=== PATIENT | male | born 1945 | race Caucasian/White ===

== ENCOUNTER → 2016-09-11 | Outpatient (CLI) | payer BC ==
[~2016-09-11] MED LIST: AMLO-114 PO; ASPI81TA28 PO; ATOR10TA88 PO; LEVO50TA6 PO; MEMA10TA PO; MULT-506 PO
[2016-09-11 12:24] LABS: BASO % 0.4 %; BASO ABS # 0.02 K/uL (0-0.2); COMPLETE YES; HEMATOCRIT 45.2 % (42-52); IG% 0.4 %; LYMPH % 32.9 %; LYMPH ABS # 1.62 K/uL (1.2-3.4); MEAN CELL VOLUME 96.2 fL (80-100); MEAN CORPUSCULAR HEMOGLOBIN 33.8 pg (25-34); MEAN CORPUSCULAR HGB CONC 35.2 g/dl (32-36); MEAN PLATELET VOLUME 10.5 fL (7.4-10.4); MONO % 9.1 %; NEUT % 55.2 %; PLATELET COUNT 151 K/uL (130-400); WHITE BLOOD COUNT 4.92 K/uL (4.8-10.8)
[2016-09-11 12:27] LABS: URINE APPEARANCE CLEAR (CLEAR); URINE BILIRUBIN NEG (NEG); URINE COLOR YELLOW; URINE EPITHELIAL CELL AUTO 0-5 /lpf (0-5); URINE NITRITE NEG (NEG); URINE SPECIFIC GRAVITY 1.006 (1.000-1.030); UROBILINOGEN NEG (NEG); ZZUR CULT IF INDIC CLEAN CATCH NO
[2016-09-11 12:29] LABS: MANUAL MICROSCOPIC REQUIRED? NO; REVIEW REQ? NO
[2016-09-11 12:35] LABS: ALT/SGPT 26 U/L (12-78); AST/SGOT 14 U/L (15-37); BLOOD UREA NITROGEN 14 mg/dl (7-18); BUN/CREATININE RATIO 12.6 (10-20); CALCIUM 9.2 mg/dl (8.5-10.1); CARBON DIOXIDE 25 mmol/L (21-32); CHLORIDE 104 mmol/L (98-107); GLUCOSE 79 mg/dl (70-99); POTASSIUM 3.9 mmol/L (3.5-5.1); SODIUM 140 mmol/L (136-145)
[2016-09-11 12:43] LABS: ALB/GLOB RATIO 1.5 (0.9-2); ALKALINE PHOSPHATASE 54 U/L (45-117)
== END | disposition home or self-care (01) ==
LOC: C.LABBFT 07:53
PROVIDERS: ATTEND Internal Medicine
DX: I10 Essential (primary) hypertension (principal); E03.9 Hypothyroidism, unspecified

== ENCOUNTER → 2017-03-25 | Outpatient (CLI) | payer BC ==
[2017-03-25 12:34] LABS: CHOLESTEROL/HDL RATIO 2.8; PROSTATE SPECIFIC ANTIGEN 1.85 ng/ml (0.000-4.000); THYROID STIMULATING HORMONE 2.41 uIu/ml (0.300-4.500)
== END | disposition home or self-care (01) ==
LOC: C.LABBFT 09:32
PROVIDERS: ATTEND Internal Medicine
DX: E03.9 Hypothyroidism, unspecified (principal); E78.5 Hyperlipidemia, unspecified; Z12.5 Encounter for screening for malignant neoplasm of prostate; Z11.59 Encounter for screening for other viral diseases

== ENCOUNTER → 2017-07-17 | Outpatient (CLI) | payer BC ==
[~2017-07-17] MED LIST changes: +ATOR10TA82 PO; -ATOR10TA88 PO
== END | disposition home or self-care (01) ==
LOC: C.CPL 10:27
PROVIDERS: ATTEND Orthopaedic Surgery
DX: M19.132 Post-traumatic osteoarthritis, left wrist (principal)

== ENCOUNTER → 2017-10-02 | Outpatient (CLI) | payer BC ==
[2017-10-02 12:54] LABS: BASO % 0.5 %; BASO ABS # 0.02 K/uL (0-0.2); EOS % 6.4 %; EOS ABS # 0.26 K/uL (0-0.5); HEMATOCRIT 43.4 % (42-52); HEMOGLOBIN 15.2 g/dL (14.0-18.0); LYMPH % 42.8 %; LYMPH ABS # 1.73 K/uL (1.2-3.4); MEAN CELL VOLUME 93.7 fL (80-100); MEAN CORPUSCULAR HEMOGLOBIN 32.8 pg (25-34); MEAN PLATELET VOLUME 10.2 fL (7.4-10.4); MONO % 9.2 %; MONO ABS # 0.37 K/uL (0.11-0.59); NEUT % 41.1 %; NEUT ABS # 1.66 K/uL (1.4-6.5); PLATELET COUNT 140 K/uL (130-400); RED CELL DISTRIBUTION WIDTH CV 14.3 % (11.5-14.5); RED CELL DISTRIBUTION WIDTH SD 48.6 fL (36.4-46.3); WHITE BLOOD COUNT 4.04 K/uL (4.8-10.8)
[2017-10-02 13:42] LABS: ALBUMIN 4.3 gm/dl (3.4-5.0); ALT/SGPT 25 U/L (12-78); AST/SGOT 16 U/L (15-37); BLOOD UREA NITROGEN 16 mg/dl (7-18); CALCIUM 8.9 mg/dl (8.5-10.1); CARBON DIOXIDE 25 mmol/L (21-32); CREATININE 0.97 mg/dl (0.60-1.40); GLUCOSE 89 mg/dl (70-99); POTASSIUM 3.9 mmol/L (3.5-5.1); SODIUM 137 mmol/L (136-145)
[2017-10-02 13:52] LABS: ALKALINE PHOSPHATASE 55 U/L (45-117); TOTAL PROTEIN 7.4 gm/dl (6.4-8.2)
== END | disposition home or self-care (01) ==
LOC: C.LABBFT 07:58
PROVIDERS: ATTEND Internal Medicine
DX: I10 Essential (primary) hypertension (principal); E03.9 Hypothyroidism, unspecified

== ENCOUNTER 2024-12-01 08:31 | Observation (INO) ==
--- NOTE | 2024-11-06 16:11 | PAT Medication Instructions ---
Medication Instructions Date of Service November 06, 2024 Home Medications Medication Instructions Recorded CPAP Machine #1 ea 04/13/21 levothyroxine 50 mcg tablet 50 mcg PO QAM #90 tabs 06/30/24 memantine 10 mg tablet 10 mg PO BID #180 tabs 09/02/24 aspirin 81 mg tablet,delayed release 81 mg PO HS multivitamin 1 tab PO QAM ascorbic acid (vitamin C) 1,000 mg tablet (Vitamin C) 1 g PO QPM cholecalciferol (vitamin D3) 125 mcg (5,000 unit) tablet (Vitamin D3) 250 mcg PO QPM levothyroxine 50 mcg tablet 50 mcg PO QAM memantine 10 mg tablet 10 mg PO BID amlodipine 10 mg tablet (Norvasc) 10 mg PO HS escitalopram oxalate 10 mg tablet (Lexapro) 5 mg PO HS rosuvastatin 5 mg tablet (Crestor) 5 mg PO QPM ASK your prescriber and surgeon aspirin 81 mg tablet,delayed release 81 mg PO HS DO NOT take the morning of surgery multivitamin 1 tab PO QAM Take morning of surgery With a small sip of water, OTHERWISE NOTHING TO EAT OR DRINK AFTER MIDNIGHT: levothyroxine 50 mcg tablet 50 mcg PO QAM memantine 10 mg tablet 10 mg PO BID Take evening before surgery ascorbic acid (vitamin C) 1,000 mg tablet (Vitamin C) 1 g PO QPM cholecalciferol (vitamin D3) 125 mcg (5,000 unit) tablet (Vitamin D3) 250 mcg PO QPM memantine 10 mg tablet 10 mg PO BID amlodipine 10 mg tablet (Norvasc) 10 mg PO HS escitalopram oxalate 10 mg tablet (Lexapro) 5 mg PO HS rosuvastatin 5 mg tablet (Crestor) 5 mg PO QPM Other Notes If you have any questions please call us at [phone] or [phone] or [phone] or [phone]
--- NOTE | 2024-11-13 13:09 | Anesthesiology Consultation ---
Date of Service November 13, 2024 Assessment & Plan (1) Encounter for pre-operative examination: - Outpatient joint assessment: Patient is currently scheduled for inpatient pathway. If re-evaluated and patient/surgeon requests outpatient pathway, patient is not a candidate for outpatient joint program. Chart Review Chart Review: Acceptable Risk for Surgery and Patient seen in Pre Admission Testing Teaching & Discussion Pre-Anesthesia Teaching/Discussion Notes: Instructed NPO after midnight before surgery, except medications with 15 cc of water. Medication instructions provided according to the PAT guidelines. History Surgery Operation Date: 12/01/24 12:30 Proposed Procedures p Right Total Knee Arthroplasty - Dylan Shea MD Height/Weight Height: 5 ft 9 in Weight: 95.8 kg Allergies Allergy/AdvReac Type Severity Reaction Status Date / Time Sulfa (Sulfonamide Allergy Intermediate Lower Verified 11/06/24 10:13 Antibiotics) Extremity Swelling Medications Home Medications Medication Instructions Recorded Confirmed Last Taken aspirin 81 mg tablet,delayed 81 mg PO HS 05/22/19 11/06/24 09/17/23 release multivitamin 1 tab PO QAM 05/22/19 11/06/24 09/17/23 CPAP Machine #1 ea 04/13/21 11/05/24 10/16/22 ascorbic acid (vitamin C) 1,000 mg 1 g PO QPM 09/18/23 11/06/24 09/17/23 tablet (Vitamin C) cholecalciferol (vitamin D3) 125 250 mcg PO QPM 09/18/23 11/06/24 09/17/23 mcg (5,000 unit) tablet (Vitamin D3) levothyroxine 50 mcg tablet 50 mcg PO QAM #90 tabs 06/30/24 11/06/24 Unknown memantine 10 mg tablet 10 mg PO BID #180 tabs 09/02/24 11/06/24 Unknown amlodipine 10 mg tablet (Norvasc) 10 mg PO HS 11/06/24 11/06/24 Unknown escitalopram oxalate 10 mg tablet 5 mg PO HS 11/06/24 11/06/24 Unknown (Lexapro) rosuvastatin 5 mg tablet (Crestor) 5 mg PO QPM 11/06/24 11/06/24 Unknown Past Medical History Medical History (Updated 11/13/24 @ 13:19 by Clara Ho PA-C) Arthritis of knee, right Chronic allergic rhinitis Environmental allergies Hard of hearing no hearing aids History of skin cancer s/p excision History of stomach ulcers no current problems as per patient Hx of Lyme disease many yrs ago; completed antibiotic tx Hyperlipidemia Hypertension controlled, stable per pt Hypothyroidism Peyronie's disease Sleep apnea CPAP-compliant Transient ischemic attack (TIA) hx - "multiple" in 2004 - "Only affected my mood swings and short term troy ry" - [facility] [place] [facility] Vascular dementia [facility] [place] [facility] Vertigo chronic, denies change or worsening Patient denies h/o seizures, heart attack, heart failure, DM, blood clots/DVTs or blood transfusions. Exercise / Class Metabolic Activity II 4-5 Yardwork/Stairs/Walk up hill (denies chest discomfort or shortness of breath with one flight of stairs) Past Family History Family History Mother Liver cancer Father Coronary heart disease Brother Unknown family medical history Sister Cerebral aneurysm Denies family history of Ovarian cancer Prostate cancer Myocardial infarction Breast cancer Colorectal cancer Past Surgical History Surgical History (Updated 11/13/24 @ 13:18 by Clara Ho PA-C) H/O right inguinal hernia repair (09/24/23) Open Right Inguinal Hernia Repair with Mesh(Right) - Neel Francois DO History of back surgery lumbar - no hardware History of carpal tunnel release left x2 History of colonoscopy History of esophagogastroduodenoscopy (EGD) History of nasal septoplasty History of surgery right finger amputation History of surgical removal of skin lesion Hx of bilateral cataract extraction Status post fusion of wrist left wrist with hardware Past Anesthesia History No Family Hx of Anesthesia Complications and Other (was told "swallowed tongue" when having surgery at age 8 y/o--denies any other issues with anesthesia) History of PONV No Hx of PONV and Hx of Motion Sickness Social History Smoking Status: Never smoker tobacco type: cigarettes Do You Dip or Chew Tobacco: No Hx Alcohol Use: No Hx Substance Use: No substance use type: does not use Review of Systems Patient denies chest pain, shortness of breath, dyspnea on exertion, fever, chills, cough, wheezing, or palpitations. Physical Exam Vital Signs Vitals BP 137/79 P 60 TEMP 98.4 SP02 95% on RA RESP 17 Physical Patient resting comfortably in chair in no acute distress, alert and oriented, responding appropriately throughout visit Full cervical extension range of motion without pain TMD < 3 finger breadths Mallampati Score 3 Dentition: intact, denies chipped or loose teeth, caps/crowns, implants or bridges Lungs: normal respiratory effort. Good air movement, clear throughout to auscultation, no adventitious breath sounds Cardiac: regular rate and rhythm, no murmurs noted Carotid arteries: negative bruit bilat Lab Results Anesthesia Preop Results Results Anesthesia Widget: WBC 5.28 K/ul (4.8-10.8) 11/13/24 Hgb 15.3 g/dl (14.0-18.0) 11/13/24 Hct 43.8 % (42.0-52.0) 11/13/24 Plt 163 K/uL (130-400) 11/13/24 Na 138 mmol/L (136-145) 11/13/24 K 4.2 mmol/L (3.5-5.1) 11/13/24 Cl 105 mmol/L (98-107) 11/13/24 CO2 28 mmol/L (21-32) 11/13/24 BUN 15 mg/dl (6-23) 11/13/24 Creat 0.86 mg/dl (0.6-1.4) 11/13/24 Glucose Level 89 mg/dl (70-99(Fasting)) 11/13/24 PT 10.8 Seconds (9.0-12.0) 11/13/24 PTT 27 Seconds (21-31) 11/13/24 INR 1.0 (0.9-1.1) 11/13/24 Blood Type A Negative 11/13/24 Antibody Screen NEGATIVE 11/13/24 Testing Electrocardiogram Date: 11/13/24 NSR, rate 60 bpm Chest X-Ray Date: 11/13/24 1. No active cardiopulmonary disease or focal consolidation. 2. Interval stable elevated right hemidiaphragm. 3. Radiopaque densities are seen in right hypochondrium may represent cholelithiasis, sonographic correlation is suggested. 4. Mild thoracic spondylosis.
[~2024-12-01 08:31] MED LIST changes: -AMLO-114 PO; -ASPI81TA28 PO; -ATOR10TA82 PO; +BUPIVACAINE 0.5 % 5 MG/1 ML PF 10ML VIAL ONE; -LEVO50TA6 PO; -MEMA10TA PO; -MULT-506 PO; +ROPIVACAINE 0.5% 5 MG/ML 30 ML VIAL ONE
--- NOTE | 2024-12-01 09:00 | History & Physical Bridge Note ---
Date of Service December 01, 2024 History & Physical Bridge Note I have examined the patient, reviewed the History & Physical and in the interval since the performance of the History & Physical I have noted the following changes of clinical significance: no changes noted
[2024-12-01] MEDS: LR 500ML BOLUS, THEN 15ML/HR IV SCH (09:02)
[2024-12-01] MEDS: LR 60ML/HR IV SCH (09:02)
[2024-12-01] MEDS: dexAMETHasone**PF** 10 MG/ML VIAL IV SCH (09:03)
[2024-12-01] MEDS: METOCLOPRAMIDE HCL 10 MG TABLET PO SCH (09:03)
[2024-12-01] MEDS: CeleBREX 200 MG CAP PO SCH (09:03)
[2024-12-01] MEDS: FAMOTIDINE 20 MG TAB PO SCH (09:03)
[2024-12-01] MEDS: ACETAMINOPHEN 500 MG TAB PO SCH ×2 (09:03→15:04)
[2024-12-01] MEDS ORDERED: MIDAZOLAM HCL 1 MG/ML 2ML VIAL ONE (10:07)
[2024-12-01] MEDS ORDERED: ONDANSETRON INJ 2 MG/ML 2 ML VIAL ONE (10:07)
[2024-12-01] MEDS ORDERED: fentaNYL citrate PF 100 MCG/2 ML VIAL ONE (10:07)
[2024-12-01] MEDS ORDERED: PROPOFOL IV EMULSION 10 MG/ML 20 ML VIAL IV ONE ×2 (10:07→12:52)
[2024-12-01] MEDS: ceFAZolin 2000MG 2,000 MG/15 ML SYR IV SCH ×2 (11:33→19:41)
[2024-12-01] MEDS: ORTHO JOINT ANESTHETIC ONE (12:21)
[2024-12-01] MEDS: ROPIV 0.5% 246mg, Ketorolac 30mg, EPINEPHrine 0.5mg in NSS INFIL SCH (12:21)
[2024-12-01] MEDS: TRANEXAMIC ACID 1,000 MG **IV Intra-op IV SCH (12:24)
--- NOTE | 2024-12-01 13:20 | Operative Report ---
PG Post Operative Report Pre & Post Diagnosis Operation Date: 12/01/24 10:40 Pre-Op Diagnosis: Osteoarthritis right knee Post-Op Diagnosis: Osteoarthritis right knee I identified the patient and participated in the time-out.: Yes Procedure Operation Date: 12/01/24 10:40 Actual Procedures p Right Total Knee Arthroplasty, Cemented(Right) - Dylan Shea MD Surgeon Dylan Shea MD [employer] Handler YULIANA Marino Estimated Blood Loss 75 Findings Consistent with Post-Op Diagnosis Operative findings were advanced right knee DJD. Patient had extensive grade 4 fthp-wh-lold disease the entire medial compartment. He had spotty grade 4 changes of the lateral compartment and patellofemoral compartments. He had a varus deformity to his knee. Slight flexion contracture. Moderate-sized joint effusion. Specimens Right knee sent for pathology. Anesthesia Type Spinal MAC Complications none Indications The patient is a 79-year-old gentleman whose had a several year history of increasing bilateral knee pain discomfort right side greater than the left. Has been through extensive conservative treatment which became less successful over time. X-rays show advanced bilateral knee arthritis. He elected proceed with right total knee arthroplasty. Description of Procedure Operative implants consist of: 1 Biomet Vanguard size 70 right posterior stabilized femoral component. 2. Biomet size 75 tibial tray. 3. 10 mm posterior stabilized polyethylene insert. 4. 31 x 8 all poly patella. The patient was taken to the op room, identified, placed on the operating table in the supine position. All conductors were appropriately padded. IV antibiotics were by the anesthesia team. A spinal anesthetic and adductor canal block had been [place] in the holding area. A right thigh tourniquet was then placed. The right lower extremity was then prepped and draped in usual sterile fashion. The right leg was elevated and exsanguinated with use of an Esmarch and a turn was placed at 300 mmHg. An anterior approach to the right knee was then performed to longitudinal incision centered over the patella. Sharp dissection was Through subcutaneous tissue down the extensor mechanism. A medial parapatellar arthrotomy incision was made. Some subperiosteal dissection was carried out medially. The fat pad was dissected from Neath patella tendon. The lateral patellofemoral ligament was released. Patella subluxated laterally and the knee was flexed. The osteophytes taken off distal femur. ACL and PCL were then released from the distal femur and the tibia subluxated anteriorly. The external treatment LYMErix then placed on the anterior face the tibia and adjusted 14 mm medially. The proximal tibial cut was made with about a millimeter bone from the medial side. Some osteophytes taken off medially. The tibia was sized to a size 75. Attention was then drawn to the femur. The distal femur examined the sharp drill. Intramedullary canal was suction. A right 6 degree valgus cutting guide was placed. The distal femoral cutting block was pinned in place. Distal femoral cut was made to take an additional 3 mm of bone off distal femur. The femur was then sized to a size 70. The AP cutting block was pinned parallel to the epicondylar axis which was 4 degrees of external rotation. The anterior cut, anterior chamfer, posterior cut, posterior chamfer cuts were made. The box cutting guide was placed and just slight lateral and the box cut was made. The knee was flexed. The remnants of the medial and lateral menisci were excised. The osteophytes taken off the pos terior aspect of femur. A trial femoral component was placed. The tibial tray was pinned in Britney external rotation and the drill and stem punch were used to create defect in the proximal tibia for the tibial tray. Knee was then trialed and the 10 mm insert fit most appropriately. Attention drawn the patella. The patella was cleaned of all soft tissues. Patella thickness measured 23 mm in thickness was cut down to 15. Was sized to a size 31 patella. The lug holes were drilled for 31 patella. The lateral osteophyte was removed. Patella button was placed. Knee was taken through range of motion patella tracked nicely with no thumbs test. Attention then drawn to placement of permanent components. All trial components were removed. Bone plug was placed into this femur limit blood loss. A double batch Palacos G cement was mixed. Biomet Vanguard size 70 right posterior stabilized femoral component, size 75 tibial tray, a 10 mm posterior stabilized polyethylene insert, and a 31 x 8 all poly patella then cemented in place. The knee was brought out into full extension till cement hardened. Final cement check was then performed. The pericapsular tissues were injected with total 100 cc of Ortho mix. The patient did receive 1 g tranexamic acid. The tourniquet was then let down for final tourniquet time of 54 minutes. Hemostasis assured with electrocautery. Extensor Meclomen then closed with combination 1 PDS suture #1 Vicryl suture in [id number] fashion. Extensor Meclomen checked found to be intact through subcutaneous tissue then closed with 2 Dexon suture in buried erupted fashion skin was closed skin silverio. Leg was then cleaned and dried and a sterile dressing with Xeroform, 4 fours, sterile cast padding, Hiro bandage were applied. Patient was then transferred to the recovery room in stable condition. The patient tolerated the procedure well and there were no complications. Jose David Marino, my physician support assistant, was present for the entire procedure. His assistance was essential and required for appropriate patient positioning, prepping and draping, surgical exposure, performing the technical details of the operation, placement the implants, closure of the wound, and placement of the sterile bandage. I attest to the content of the Intraoperative Record and any orders documented therein. Any exceptions are noted below.
--- NOTE | 2024-12-01 13:42 | XRay Report ---
XR knee RT 1 or 2V routine CLINICAL HISTORY: Surgical Post Op COMPARISON: None FINDINGS: Right knee prosthesis shows no hardware complication. There is expected soft tissue gas. S kin silverio are present. IMPRESSION: Unremarkable postoperative exam. ACT 112: Negative or not required by law. Electronically signed by: Usman Valencia M.D. 12/01/2024 1:41 PM
[2024-12-01] MEDS ORDERED: METOCLOPRAMIDE HCL INJ 5 MG/ML 2 ML VIAL IV PRN (14:15)
[2024-12-01] MEDS ORDERED: bisacodyL 10 MG SUPP PR PRN (14:15)
[2024-12-01] MEDS ORDERED: ALUMINUM/MAGNESIUM SUSP 30 ML UDC PO PRN (14:15)
[2024-12-01] MEDS ORDERED: MAGNESIUM HYDROXIDE SUSP 30 ML UDC PO PRN (14:15)
[2024-12-01] MEDS ORDERED: NALOXONE HCL 0.4 MG/1 ML VIAL/CARP IV PRN (14:15)
[2024-12-01] MEDS ORDERED: ONDANSETRON INJ 2 MG/ML 2 ML VIAL IV PRN (14:15)
[2024-12-01] MEDS ORDERED: oxyCODONE HCL IR 5 MG TAB (IMMEDIATE RELEASE) PO PRN (14:15)
[2024-12-01] MEDS ORDERED: HYDROmorphone INJ 0.5 MG/0.5 ML SYR IV PRN (14:15)
[2024-12-01] MEDS: KETOROLAC TROMETHAMINE 15 MG/ML VIAL IV SCH (15:04)
--- NOTE | 2024-12-01 15:24 | Anesthesiology Progress Note ---
Date of Service December 01, 2024 Anesthesia Post Procedure Vital Signs Vital Signs: Temp Pulse Pulse Resp BP BP Pulse Ox 12/01/24 14:54 97.5 F L 70 18 116/67 92 12/01/24 14:18 97.5 F L 75 18 107/62 92 12/01/24 14:05 73 13 126/55 L 94 12/01/24 13:55 97.7 F 74 21 105/54 L 92 12/01/24 13:45 68 14 103/46 L 96 12/01/24 13:35 71 12 107/54 L 97 12/01/24 13:25 77 12 104/53 L 97 12/01/24 13:15 97.5 F L 81 13 101/53 L 97 12/01/24 08:40 98.1 F 61 18 125/75 95 O2 Del Method O2 Flow Rate 12/01/24 14:54 Room Air 12/01/24 14:18 Room Air 12/01/24 14:05 Room Air 12/01/24 13:55 Room Air 12/01/24 13:45 Room Air 12/01/24 13:35 Oxymask 3 12/01/24 13:25 Oxymask 9 12/01/24 13:15 Oxymask 9 12/01/24 08:40 Room Air Transfer of Care Handoff Completed per policy Notes Mental Status: alert / awake / arousable and participated in evaluation Patient Amnestic to Procedure: Yes Nausea / Vomiting: adequately controlled Pain: adequately controlled Airway Patency, RR, SpO2: stable & adequate BP & HR: stable & adequate Hydration State: stable & adequate Neuraxial Anesthesia: was administered and sensory block is resolving Anesthetic Complications: no major complications apparent and Pt Satisfied with anesthetic care
[2024-12-01] MEDS: ASCORBIC ACID 500 MG TAB PO SCH (17:41)
[2024-12-01] MEDS: TRANEXAMIC ACID / 0.7% NACL 1,000 MG/100 ML BAG IV SCH (19:47)
[2024-12-01] MEDS: CHOLECALCIFEROL 125 MCG (5,000 UNITS) TAB PO SCH (19:47)
[2024-12-01] MEDS: MEMANTINE HCL 10 MG TAB PO SCH (19:48)
[2024-12-01] MEDS: ASPIRIN 81 MG ECTAB PO SCH (19:48)
[2024-12-01] MEDS: ROSUVASTATIN CALCIUM 5 MG TAB PO SCH (19:48)
[2024-12-01 19:52] VITALS: RESP 16
[2024-12-01] MEDS: amLODIPine BESYLATE 5 MG TAB PO SCH (19:53)
[2024-12-01] MEDS: SENNA 8.6 MG TAB PO SCH (20:33)
[2024-12-01] MEDS: DOCUSATE SODIUM 100 MG CAP PO SCH (20:33)
[2024-12-01] MEDS ORDERED: NON-FORMULARY MEDICATION (Ascorbic Acid (Vitamin C) [Vitamin C] 1,000 mg Tablet) PO SCH (21:00)
[2024-12-01] MEDS ORDERED: SENNA 8.6 MG TAB PO SCH (21:00)
[2024-12-02] MEDS: LEVOTHYROXINE SODIUM 50 MCG TABLET PO SCH (05:31)
[2024-12-02 07:27] VITALS: BP 130/74; PULSE 69; TEMP 97.9; O2SAT 98
[2024-12-02] MEDS: MULTIVITAMIN TAB PO SCH (08:23)
[2024-12-02] MEDS: TAMSULOSIN HCL 0.4 MG CAP PO SCH (08:23)
[2024-12-02] MEDS: dexAMETHasone 10 MG in SYRINGE 0 ML IV SCH (08:24)
[2024-12-02 08:43] LABS: Hematocrit (blood only) 38.7 % (42.0-52.0); Hemoglobin 13.7 g/dl (14.0-18.0); Mean Corpuscular Hemoglobin 33.7 pg (25.0-34.0); Mean Corpuscular Hgb Conc 35.4 g/dL (32.0-36.0); Mean Corpuscular Volume 95.3 fL (80.0-100.0); Mean Platelet Volume 9.6 fL (9.4-12.4); Platelet Count 168 K/uL (130-400); RDW Coefficient of Variation 12.5 % (11.5-14.5); Red Blood Count 4.06 M/uL (4.70-6.10); White Blood Count 13.57 K/ul (4.8-10.8)
[2024-12-02 08:55] LABS: BUN Creatinine Ratio 15.8 (10-20); Calcium 9.3 mg/dl (8.6-10.3); Creatinine Clr Calc Pharmacy 67.5 ml/min; Potassium 4.2 mmol/L (3.5-5.1)
[2024-12-02] MEDS ORDERED: NON-FORMULARY MEDICATION (Multivitamin tablet) PO SCH (09:00)
--- NOTE | 2024-12-02 11:34 | Orthopedic Progress Note ---
Date of Service December 02, 2024 Assessment & Plan (1) Status post total right knee replacement: (2) Aftercare following right knee joint replacement surgery: Plan 79-year-old gentleman POD# 1 s/p right total knee replacement, doing well overall. Pain is well-controlled. Medically stable. Postop x-rays well- appearing. He is neurologically intact. Plan: 1. DVT prophylaxis w/ TEDs, SCDs, ASA 81 mg BID. 2. PT/OT as tolerated. WBAT on the R LE. Encourage heel slides, SLR, full knee extension w/ quad sets. 3. Pain control doing well with current pain regimen. 4. Dressing change POD#2 per discharge instructions. 5. Disposition - plan to D/C home w/ [facility] later today once cleared by PT/OT. 6. F/u 2 weeks post-op w/ orthopedics (Dr. Shea's team), or as previously scheduled, for first post-op visit. Subjective Patient is POD# 1 s/p right total knee arthroplasty by Dr. Shea on 12/01/2024. Patient says his pain is well-controlled this morning. Denies CP, SOB, N/V, R LE paresthesia. He has home health PT arranged to come to the house for therapy. Patient says that he will be ready to go home today. Review of Systems All systems reviewed & are unremarkable except as noted in HPI & below. Physical Exam GENERAL: AA&Ox3, NAD. Pleasant, affect is calm. Sitting in bedside chair and appears comfortable. RESPIRATORY: Normal respiratory effort with no signs of distress. CHEST/AXILLA: Chest movement symmetrical. No deformities noted. CARDIOVASCULAR: No edema noted. SKIN: [place], warm and dry. MS/EXTREMITY: Knee dressing & IVON wrap c/d/i. ADRI hose donned to contralateral LE. + ankle dorsi/plantarflexion. NVI distally. Calf soft/NT. PT/DP pulses intact, 2+. Able to perform SLR with minimal assist. Results & Data Results & Data Laboratory Results . Laboratory Results - last 24 hr 12/02/24 06:56 WBC 13.57 H RBC 4.06 L Hgb 13.7 L Hct 38.7 L MCV 95.3 MCH 33.7 MCHC 35.4 RDW Std Deviation 43.0 RDW Coeff of Katherin 12.5 Plt Count 168 MPV 9.6 Sodium 137 Potassium 4.2 Chloride 104 Carbon Dioxide 25 Anion Gap 8 BUN 16 Creatinine 1.01 Est Cr Clr Drug Dosing 67.5 eGFR 75.65 BUN/Creatinine Ratio 15.8 Glucose 101 H Calcium 9.3 Diagnostic Findings . Knee X-Ray 12/01/24 13:13 XR knee RT 1 or 2V routine CLINICAL HISTORY: Surgical Post Op COMPARISON: None FINDINGS: Right knee prosthesis shows no hardware complication. There is expected soft tissue gas. Skin silverio are present. IMPRESSION: Unremarkable postoperative exam. ACT 112: Negative or not required by law. Electronically signed by: Usman Valencia M.D. 12/01/2024 1:41 PM PG Care Time/CCT Total # of Minutes Spent Total Time Spent with Patient: Total time spent is greater than 50% in coordination of care (as documented) at patient's floor/unit and/or counseling patient: [place] [address] Post Operative Follow-Up Patient Type Established History Problem Focused Exam Problem Focused Medical Decision Making Straight Forward Diagnoses Status post total right knee replacement Z96.651 Aftercare following right knee joint replacement surgery Z47.1; Z96.651
--- NOTE | 2024-12-02 11:46 | Discharge Summary ---
Date of Service December 02, 2024 Admission HPI (Per Admitting) The patient is a 79-year-old gentleman who returns for followup of his knees. The shots do continue to help but he is starting to have more and more back pain. He is going to be seen in back clinic and he does not want injections as they would not do the back injections then. He comes in talking about Synv[employer]. The right knee bothers him more than the left. After further discussion, he is really wanting to consider knee surgery. The right knee bothers him more than the left. It is kind of global pain. The more he is up on it, the more it hurts. 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 It is also more symptomatic. The steroid shots help but he is needing some back injections and would like to now just proceed with knee surgery on the right side. We are going to set him up for right knee replacement. The risks and benefits of this procedure were explained. Informed consent was obtained. We will use aspirin for DVT prophylaxis. They are planning to be discharged to home. His can assist in his care. I will see him back 2 weeks postop. Admission Exam (Per Admitting) Gen: Physical examination shows a pleasant 79-year-old male. He looks younger than his stated age. HEENT: Benign. Neck: Supple. No lymphadenopathy. Lungs: Clear to auscultation. Heart: Regular rate and rhythm. Abdomen: Soft, nontender, and nondistended. Extremities: Grossly neurovascularly intact except as follows: Examination of both knees reveals patient ambulates independently. Examination of the right knee reveals a small knee effusion. He has got varus alignment to his knee. Tender over the medial joint line. Range of motion is 0 to 125. No instability. No pain with hip motion. Examination of left knee reveals a slight varus alignment. Minimal knee effusion. Tender over the medial joint line. Range of motion is 0 to 125. No instability. No pain with hip motion. XR Exam: X-rays of the knees from today were reviewed. We have a bilateral 4- view knee series. It shows advanced bilateral medial compartment arthritis in both knees. The right side is a bit worse than the left. 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 Principal Diagnosis Same as "Discharge Diagnosis" noted below under Discharge Instructions. Discharge Exam GENERAL: AA&Ox3, NAD. Pleasant, affect is calm. Sitting in bedside chair and appears comfortable. RESPIRATORY: Normal respiratory effort with no signs of distress. CHEST/AXILLA: Chest movement symmetrical. No deformities noted. CARDIOVASCULAR: No edema noted. SKIN: Bay, warm and dry. MS/EXTREMITY: Knee dressing & IVON wrap c/d/i. ADRI hose donned to contralateral LE. + ankle dorsi/plantarflexion. NVI distally. Calf soft/NT. PT/DP pulses intact, 2+. Able to perform SLR with minimal assist. Discharge Data Procedures Performed Operation Date: 12/01/24 10:40 Actual Procedures p Right Total Knee Arthroplasty, Cemented(Right) - Dylan Shea MD Ordered Studies 12/01/24 05:00 US - OR guided needle placemen Routine Hospital Course (1) Status post total right knee replacement: (2) Aftercare following right knee joint replacement surgery: Plan On December 01, 2024 Aurelio arrived at [facility] operating room and underwent a right total knee replacement without complications. Patient had an adductor canal block and spinal anesthetic for the procedure. Postoperatively, patient was transferred to the general orthopedic floor in stable condition and eventually started onto aspirin 81 mg twice daily for DVT prophylaxis as appropriate. Patient's hospital course was uneventful. On postoperative day #1, patient's vital signs were stable and pain was well- controlled. Patient was able to participate well with physical therapy, safely performing the necessary ambulation and range of motion exercises and properly demonstrating ADL tasks. Patient was then discharged home in stable condition, with [facility] services to begin. Patient will follow-up with orthopedics in 2 to 3 weeks for postoperative care. PG Care Time/CCT Total # of Minutes Spent Total Time Spent with Patient: Total time spent is greater than 50% in coordination of care (as documented) at patient's floor/unit and/or counseling patient: Discharge Plan Discharge Items Patient Disposition: Home - Home Health Services Reason For Visit: Osteoarthritis Knee Right Discharge Diagnosis: Right Knee Replacement Activity: Per Instructions section Weightbearing: Full weightbearing Non-emergency contact: Surgeon Call non-emergency contact if: you have any medication questions Follow-up/Referrals: Matthew Ramirez MD [Primary Care Provider] - Dylan Shea MD [Physician] - (12/18/24 @ 11:30) Diet: Regular Addtl Attending Provider Instructions: ACTIVITY RECOMMENDATIONS: Diet: * You may resume previous diet. Physical Therapy: * You will go to physical therapy three times each week for four to six weeks after your surgery in order to regain your knee range of motion and to retrain your knee to work properly. * It is just as important to make sure you are getting your knee perfectly straight as it is to regain your knee bend. * Taking a pain pill an hour before therapy can help you have a more productive and comfortable therapy session. Home Exercise: * You were shown a series of exercises (heel props, heel slides, etc.) in the hospital. Do these exercises three to four times each day including the exercises you were shown in physical therapy. Walking: * Get up and walk several times each day. For the first four weeks, try not to stand or walk for more than one hour at a time. If you do stand or walk for more than one hour, you will not hurt anything, but your knee and leg will likely swell. * As you feel comfortable, you may change from the walker or crutches to a cane and then to independent walking. MEDICATIONS: New Medicine: * You will likely be taking one or more of these medications: 1. Oxycodone - A quick and shorter-acting pain medication. Take one to two tablets every six hours to lessen your pain. 2. Aspirin - Thins your blood to lessen the chance of forming a blood clot. * The most common side effects of pain medicine and iron are nausea and constipation. If nausea or constipation is too much of a problem or if you have any questions about your new medicines or doses, call [facility] at . We will try to help you manage these issues. "VERY IMPORTANT TO READ AND REVIEW" Pain: * The immediate post-operative period after knee replacement surgery is often quite painful. * You are given a prescription for pain medicine. You should take it, as directed, when you need it, especially before physical therapy and before going to bed. Pain that interferes with sleep is very common and can last several months. * You will likely need pain medicine for the first four to six weeks. It will not stop all of the pain. The pain will lessen and as you feel better, you may change to milder pain medicine such as Tylenol. * The most common side effects of pain medicine are nausea and constipation, so don't take more than you need. SPECIAL CARE INSTRUCTIONS: TEDs/Elastic Stockings: * The white elastic stockings help limit swelling and prevent blood clots from forming in your legs. The more you wear them, the more they work. * Wear them for six weeks after knee replacement surgery and four weeks after partial knee replacement. Incision Site Care: * Remove dressing postoperative day 2 and then shower. Keep direct shower pressure off the incision site. * After showering, cover omid with dry gauze and change daily or more frequently if the dressing is getting saturated with drainage. * Use the ADRI stockings to hold dressing in place. DO NOT apply tape on the skin. * May completely stop using bandage if wound is dry and no drainage * Omid are removed between 2 and 3 weeks post-op. If your follow-up appointment is made before 2 weeks, please have your appointment re- scheduled. It is too early to remove the omid. Prevention of Infection: * Take antibiotics one hour before any dental cleaning, dental work, urological procedure, gastrointestinal procedure or any invasive surgery in order to prevent your new joint from getting infected. * You may get the antibiotics from the doctor performing the procedure or you may call our office at [phone] before and we will call in a prescription to the pharmacy of your choice. Things to Watch For: * Drainage from the incision site that occurs more than one week after your surgery. * Severely increased knee/leg pain or swelling. * Increased redness at the incision site. * Fever above 102 degrees Fahrenheit. * Unusual chest pain or shortness of breath. * Unusual pain or burning with urination. Call [facility] at [phone] with any of the above problems or if you have any questions about your medicines or recovery. FOLLOW UP VISIT: Make an appointment to see your doctor for approximately two weeks after surgery for a progress check and staple removal by calling the office at [phone]. Pending Studies at Discharge: No Stand-Alone Forms: My [facility], Smoking Cessation Medications and DC Order Prescriptions: Continued (DME) CPAP Machine Misc See Rx Instructions .Route Qty: 1 0RF Rx Instructions: New CPAP 8cm H20 tubing, supplies, modem. Not shelbi brand if possible levothyroxine 50 mcg tablet 50 mcg PO QAM Qty: 90 3RF memantine 10 mg tablet 10 mg PO BID Qty: 180 3RF sennosides [Senokot] 8.6 mg tablet 8.6 mg PO BID 14 Days Qty: 28 0RF Rx Instructions: Take two times a day to prevent/treat constipation aspirin [Dyana Low Dose Aspirin] 81 mg tablet,delayed release (DR/EC) 81 mg PO BID 45 Days Qty: 90 0RF Rx Instructions: Take to prevent blood clots. acetaminophen [Tylenol Extra Strength] 500 mg tablet 1,000 mg PO TID 30 Days Qty: 180 0RF Rx Instructions: Take 3 times per day to lessen pain. ketorolac 10 mg tablet 10 mg PO Q6 5 Days Qty: 20 0RF Rx Instructions: Take 4 times per day with food for 5 days to lessen pain and swelling. cefadroxil 500 mg capsule 500 mg PO BID 7 Days Qty: 14 0RF Rx Instructions: Take 1 cap twice a day to prevent infection tamsulosin [Flomax] 0.4 mg capsule 0.4 mg PO DAILY Qty: 7 0RF Rx Instructions: Begin night BEFORE surgery to prevent urinary retention ondansetron 4 mg tablet,disintegrating 4 mg PO Q8 PRN (Reason: nausea) Qty: 20 1RF Rx Instructions: Take as needed for nausea oxycodone 5 mg tablet 5 - 10 mg PO Q6 PRN (Reason: pain) Qty: 40 0RF Rx Instructions: Take as needed for pain multivitamin tablet 1 tab PO QAM aspirin 81 mg tablet,delayed release (DR/EC) 81 mg PO HS ascorbic acid (vitamin C) [Vitamin C] 1,000 mg Tablet 1 g PO QPM cholecalciferol (vitamin D3) [Vitamin D3] 125 mcg (5,000 unit) Tablet 250 mcg PO QPM amlodipine [Norvasc] 10 mg tablet 10 mg PO HS escitalopram oxalate [Lexapro] 10 mg tablet 5 mg PO HS rosuvastatin [Crestor] 5 mg tablet 5 mg PO QPM Admission Data Admit Date/Time: 12/01/24 13:13 Attending Provider: Dylan Shea Admit Provider: Dylan Shea Primary Care Provider: Matthew Ramirez Other Interventions: Discharge Summary Assessment (RN) Last Done: 12/02/24 09:49
== END 2024-12-02 11:22 | disposition home health service (06) ==
LOC: 3E 08:31 → ASU 08:31
DX: Z86.73 Personal history of transient ischemic attack (TIA), and cerebral infarction without residual deficits; Z88.2 Allergy status to sulfonamides; R42 Dizziness and giddiness; M17.0 Bilateral primary osteoarthritis of knee; G47.33 Obstructive sleep apnea (adult) (pediatric); Z79.899 Other long term (current) drug therapy; I10 Essential (primary) hypertension; Z79.890 Hormone replacement therapy; Z79.82 Long term (current) use of aspirin; Z87.898 Personal history of other specified conditions